=== PATIENT | female | born 1965 | race Caucasian/White ===

== ENCOUNTER → 2023-04-28 13:33 | Outpatient (BNVA) | payer OTHER, SELFPAY | PROVIDERS: PCP Internal Medicine; Visit Provider Hospitalist | DX: J43.2 Centrilobular emphysema (principal); J40 Bronchitis, not specified as acute or chronic; F17.210 Nicotine dependence, cigarettes, uncomplicated | CPT/HCPCS: 99202 ==

== ENCOUNTER 2023-05-13 13:03 | Outpatient (REF) | payer OTHER, SELFPAY ==
--- NOTE | 2023-05-13 14:09 | PFT_ITS ---
INDICATION: COPD. SPIROMETRY: FEV1 to FVC of 52% with an FEV1 of 1.74 L, which is 59% predicted and an FVC of 3.38 L, which is 89% predicted. No significant response to bronchodilators noted. Maximum voluntary ventilation 72% predicted. LUNG VOLUMES: Total lung capacity 102% predicted with expiratory reserve volume of 111% predicted. DIFFUSION CAPACITY: DLCO of 42% predicted. COMPARISON: None. INTERPRETATION: There is an obstructive ventilatory defect consistent with [id number] COPD. No significant response to bronchodilators noted. Mild decrease in the maximum volume to ventilation secondary to deconditioning. Lung volumes are within normal limits. The patient does have a severe diffusion impairment secondary to emphysema and/or other parenchymal lung condition that should be considered. Clinical correlation warranted. Josemanuel Dutta MD MR/MODL / [id number]
== END 2023-05-13 13:04 | disposition home or self-care (01) ==
LOC: HO.RESP 13:03
PROVIDERS: PCP Internal Medicine; Visit Provider Hospitalist
DX: J44.9 Chronic obstructive pulmonary disease, unspecified (principal)
CPT/HCPCS: 94060; 94727; 94729

== ENCOUNTER 2023-06-12 13:59 | Outpatient (AMB) | payer OTHER, SELFPAY ==
--- NOTE | 2023-06-12 12:38 | MHC.OFFVIS ---
Intake Intake Visit Reasons: LDCT SD Allergies sulfamethoxazole [From Bactrim] Allergy (Severe, Verified 04/28/23 13:43) Hives trimethoprim [From Bactrim] Allergy (Severe, Verified 04/28/23 13:43) Hives HPI LDCT SD HPI Details Initial visit for this 57yo smoker with a 35+PYH. Patient has been smoking since age 15 for 42 years at 1ppd. Now at 1/2ppd. . Denies marijuana use. Denies second hand smoke exposure. Denies exposure to chemicals or substances like asbestos. Question uranium exposure in old living situation - never prove. . Reports family history of lung cancer - Dad and Mom. Reports personal history of left breast cancer age 27 - s/p mastectomy and chemo, no radiation. Denies chest CT in last year. . Denies recent travel outside the [place]. Denies recent respiratory illness or recent hospitalization for respiratory issues. Denies testing positive for COVID. Denies recieving COVID vaccines. . Denies fever, chills, new/worsening cough, hemoptysis, hoarseness or dysphagia. Denies significant chest pain, significant dyspnea or unintentional weight loss. Patient Lung Cancer Screening Questionnaire reviewed with patient by provider. . Shared Decision Making Completed. Patient meets criteria. Discussed in detail with patient, the risk vs benefit of LDCT screening. Patient consents to proceed with scan. Discussed smoking cessation. [facility] Medical History (Updated 06/12/23 @ 14:21 by Dora Calvert PA-C) Atherosclerosis of left carotid artery (~2021) COPD (chronic obstructive pulmonary disease) Family history of colon cancer Family history of lung cancer History of CVA (cerebrovascular accident) (~2021) History of left breast cancer (~1992) Hyperlipidemia Hypertension Hypothyroidism (acquired) Nicotine dependence, cigarettes, uncomplicated Osteopenia Vitamin D deficiency Surgical History (Updated 06/12/23 @ 14:27 by Dora Calvert PA-C) History of cardiac cath History of D&C History of left mastectomy Family History (Updated 06/12/23 @ 14:30 by Dora Calvert PA-C) Father Lung cancer Mother Lung cancer Colon cancer Brother Prostate cancer Social History (Updated 06/12/23 @ 14:19 by Dora Calvert PA-C) Patient Tobacco Use Status: Current everyday Tobacco user Tobacco use type: Cigarette Years Smoked: (current smoker - onset 15yo, 1ppd x 42yrs, now 1/2ppd - 35+PYH) Assessment & Plan Assessment & Plan (1) Nicotine dependence, cigarettes, uncomplicated: Comment: (current smoker - onset 15yo, 1ppd x 42yrs, now 1/2ppd - 35+PYH - Dad/Mom had lung ca) Code(s): F17.210 - Nicotine dependence, cigarettes, uncomplicated Plan: - SDM visit completed today in office. - Patient meets criteria for LDCT for lung cancer screening purposes and is asymptomatic. - Smoking cessation counseling offered. Patients can always call [phone]. - Will arrange for a LDCT scan of the chest for screening purposes at [facility]. - Risks, benefits, and alternatives were discussed in detail and the patient agrees to proceed. - Risks discussed include but are not limited to: radiation exposure, anxiety during testing and while awaiting results, false negatives, false positives and possibility of additional intervention such as further imaging or surgical procedures for benign disease. - Benefits are obviously detection of lung cancer at an early stage which can lead to improved outcomes. - Discussed the importance of screening program compliance with adherence to yearly LDCT scan as scheduled - or sooner interval scans for personalized screening regimen. - Discussed follow up plan. Our office will send a letter discussing results and if needed set up phone call and office visit based on CT findings. - Patient educated on results categorization and the management decisions for suspicious findings potentially found on the screening LDCT scan. Any patient with a Lung RADS score of 3 or 4 will be reviewed by a multidisciplinary team at [facility] to form a plan of action in regards to scan findings. - If further work up is warranted for a suspicious lung finding this will be followed by the Lung Cancer Screening program in conjunction with the Thoracic Surgery Department at [facility]. - A copy of the office note and LDCT will be sent to the patient's PCP - as well as documentation on any associated further plans of care. - Incidental findings on LDCT are the PCP's responsibility. These findings are indicated with an S finding on the LDCT Assessment. A note discussing the findings will be sent to the PCP who is then responsible for further management. - All questions answered.? Coding Level of Care Code Lung Cancer Screening G0296 Diagnoses Nicotine dependence, cigarettes, uncomplicated F17.210
== END 2023-06-12 14:28 | disposition home or self-care (01) ==
PROVIDERS: PCP Internal Medicine; Visit Provider Physician Assistant Medical
DX: F17.210 Nicotine dependence, cigarettes, uncomplicated (principal)
CPT/HCPCS: G0296

== ENCOUNTER 2023-06-12 14:30 | Outpatient (REF) | payer OTHER, SELFPAY ==
--- NOTE | ~2023-06-12 | CT_ITS ---
EXAMINATION: CT CHEST SCREENING CLINICAL INFORMATION: Nicotine dependence. 42 pack year history, current smoker. COMPARISON: Baseline TECHNIQUE: Multidetector volumetric CT imaging of the chest is performed without contrast using low dose technique. Additional 2D coronal and sagittal reformatted images and axial 3D maximum intensity projection (MIP) images are generated on the CT workstation. This CT examination was performed using dose optimization techniques as appropriate, variously including the following: *Automated exposure control *Adjustment of mA and/or kV according to patient size (this includes techniques or standardized protocols for targeted exams where dose is matched to indication/reason for exam; i.e. extremities or head) *Use of iterative reconstruction technique DLP: 33 mGy-cm FINDINGS: STAIN DIPPER: Hyperinflation. Left breast prosthesis. LUNGS: Trachea and bronchi are patent. Hyperinflated lungs with flattening of the hemidiaphragms. Centrilobular emphysema and right apical bullous disease. Left lower lobe atelectasis. MEDIASTINUM: Unremarkable thyroid. No pathologic lymphadenopathy. HEART AND GREAT VESSELS: Nonenlarged heart. Trace pericardial fluid. Nonaneurysmal aorta with atherosclerotic calcifications stenting into the branch vessels. Likely significant calcified stenoses left subclavian origin and further distally. CORONARY ARTERY CALCIFICATION: None visualized on this study. PLEURA: There is no pleural effusion. No pleural mass or thickening. AXILLA: No lymphadenopathy. UPPER ABDOMEN: Near occlusive atherosclerotic calcifications superior mesenteric artery. OSSEOUS AND SOFT TISSUE STRUCTURES: Status post left mastectomy with implant and left axillary clips. CT/CT lung screening IMPRESSION: No pulmonary nodules. Centrilobular emphysema and bullous disease. 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 ASSESSMENT: Lung-RADS category 1: Negative RECOMMENDATION: Routine annual low-dose CT screening in 12 months. Clinical correlation regarding possible mesenteric ischemia and hemodynamically significant left subclavian stenoses. Correlate with upper extremity blood pressure measurements, consider carotid and vertebral arterial duplex ultrasound.
== END 2023-06-12 14:31 | disposition home or self-care (01) ==
LOC: HO.CT 14:30
PROVIDERS: PCP Internal Medicine; Visit Provider Physician Assistant Medical
DX: Z12.2 Encounter for screening for malignant neoplasm of respiratory organs (principal); F17.210 Nicotine dependence, cigarettes, uncomplicated
CPT/HCPCS: 71271; G0296

== ENCOUNTER 2023-09-24 13:55 | Outpatient (AMB) | payer OTHER, SELFPAY ==
[2023-09-24 14:00] VITALS: BP 128/70; PULSE 88; O2SAT 99; BMI 18.4
--- NOTE | 2023-09-24 14:00 | MHC.OFFVIS ---
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 She was taken to [facility]. Initially she was thought not to be having a stroke so slow down the process. She also has significant nausea and vomiting could not get the MRI. 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 The patient also had CT scan of that neck which also demonstrated some lung tissue. The patient does have some degree of emphysema. The patient has been a smoker. She has been cutting down significantly. She is down to about 10 cigarettes a day. She was smoking a lot more before. We talked about different tobacco cessation. I do believe that Nicotrol inhaler may be helpful in decreasing her smoking habit. In addition to this the patient has been using Spiriva for his COPD. Although she still has shortness of breath with activity also complains of significant productive cough. The patient has significant chronic bronchitis along with the emphysema. She has not had any PFTs any time soon. Will go ahead and maximize her respiratory capacity by switch over to Trelegy and also start her on azithromycin 3 times a week for a couple weeks. I am hopeful that her respiratory status improves when she cuts down the smoking and when she optimize his respiratory capacity. Will have her undergo pulmonary function studies once able. In addition to this with lung cancer the risk the patient will be a great candidate for the lung cancer screening protocol. Will go ahead and refer her to the lung cancer program at this time. 09/24/2023 the patient is here for a pulmonary follow-up visit. Overall the patient is feeling better. She is responding well to the Trelegy inhaler. She still has a productive cough. She did respond well to the azithromycin although she is not taking her right now. I will give her prescription on paper that her symptoms worsen she can go back on. She did not tolerate the Nicotrol inhaler. She knows she needs to quit smoking. She has although alternatives at this time that she is considering. I did request that if she needs assistance she can always call in order for us to help her with her tobacco cessation that is so important. She is also due for her CT scan of the chest to the lung cancer screening program next week. Patient has not had PFTs as of yet. Will follow-up in 6-8 months. If she has any issues or concerns she can always call the office for an earlier assessment. [facility] Medical History (Updated 06/26/23 @ 10:36 by Dora Calvert PA-C) Family history of lung cancer Family history of colon cancer Nicotine dependence, cigarettes, uncomplicated Vitamin D deficiency Osteopenia History of left breast cancer (~1992) Hypothyroidism (acquired) Hyperlipidemia Hypertension Atherosclerosis of left carotid artery (~2021) History of CVA (cerebrovascular accident) (~2021) COPD (chronic obstructive pulmonary disease) Surgical History (Updated 06/12/23 @ 14:27 by Dora Calvert PA-C) History of cardiac cath History of D&C History of left mastectomy Family History (Updated 06/12/23 @ 14:30 by Dora Calvert PA-C) Father Lung cancer Mother Lung cancer Colon cancer Brother Prostate cancer Social History (Updated 06/12/23 @ 14:19 by Dora Calvert PA-C) Patient Tobacco Use Status: Current everyday Tobacco user Tobacco use type: Cigarette Years Smoked: (current smoker - onset 15yo, 1ppd x 42yrs, now 1/2ppd - 35+PYH) Review of Systems Const Denies fever(s) Eyes Reports change in vision ENT Denies change in voice Card Denies chest pain and Denies dyspnea on exertion Resp Reports chest congestion, Reports cough, Denies dyspnea on exertion and Denies wheezing GI Reports no additional complaints Musc Reports myalgias Skin/Breast Denies rash Neuro Reports as per HPI Max/Lymph Denies lymphadenopathy Aller/Immun Denies wheezing Physical Exam Vital Signs: Last Vital Signs Pulse 88 09/24/23 14:00 BP 128/70 09/24/23 14:00 Pulse Ox 99 09/24/23 14:00 Oxygen Delivery Method Room Air 09/24/23 14:00 BMI result Body Mass Index 18.4 Const General: comfortable HEENT Head: Yes normocephalic Neck Neck: Yes supple Chest Chest palpation & inspection: normal inspection of the chest Resp Effort & Inspection: normal respiratory effort Auscultation: no rhonchi and diminished lung sounds Cardio Rate: regular rate Rhythm: regular rhythm Heart sounds: S1 normal heart sound present and S2 normal heart sound present GI Palpation (GI): Soft to palpation Skin General skin exam: no rashes or lesions noted Extrem General: Yes no clubbing, cyanosis or edema Assessment & Plan Assessment & Plan (1) Tobacco dependence: Code(s): F17.200 - Nicotine dependence, unspecified, uncomplicated (2) COPD (chronic obstructive pulmonary disease): Comment: (05/13/23 PFT = FVC: 89, FEV1: 59, FEV1/FVC 65, TLC 102, DLCO 42) Code(s): J44.9 - Chronic obstructive pulmonary disease, unspecified Qualifiers: COPD type: emphysema Emphysema type: centrilobular Qualified Code(s): J43.2 - Centrilobular emphysema (3) Bronchitis: Code(s): J40 - Bronchitis, not specified as acute or chronic Plan continue Trelegy BRIGITTE as needed restart Azithromycin in worsens PFTs LDCT program nicotrol inhaler F/U 2-3 months Medications: New azithromycin Take 1 tablet on Thursday/Thursday/Thursday 250 mg PO 3XW 28 days 12 tabs 2RF K21.9 - Gastro-esophageal reflux disease without esophagitis Coding Level of Care Code Est Pt Level 4 (91024) Diagnoses Tobacco dependence F17.200 Centrilobular emphysema J43.2 COPD type: emphysema Emphysema type: centrilobular Bronchitis J40 Time Spent (min) 16
== END 2023-09-24 14:18 | disposition home or self-care (01) ==
PROVIDERS: PCP Internal Medicine; Visit Provider Hospitalist
DX: F17.200 Nicotine dependence, unspecified, uncomplicated (principal); J43.2 Centrilobular emphysema; J40 Bronchitis, not specified as acute or chronic
CPT/HCPCS: 99214

== ENCOUNTER → 2023-09-24 13:55 | Outpatient (BNVA) | payer OTHER, SELFPAY | PROVIDERS: PCP Internal Medicine; Visit Provider Hospitalist | DX: J43.2 Centrilobular emphysema (principal); J40 Bronchitis, not specified as acute or chronic; F17.210 Nicotine dependence, cigarettes, uncomplicated; Z79.899 Other long term (current) drug therapy | CPT/HCPCS: 99212 ==

== ENCOUNTER 2024-05-19 13:56 | Outpatient (AMB) | payer OTHER, SELFPAY ==
[2024-05-19 14:09] VITALS: PULSE 89; O2SAT 97; BMI 18.1
--- NOTE | 2024-05-19 14:09 | MHC.OFFVIS ---
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 She was taken to [facility]. Initially she was thought not to be having a stroke so slow down the process. She also has significant nausea and vomiting could not get the MRI. 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 The patient also had CT scan of that neck which also demonstrated some lung tissue. The patient does have some degree of emphysema. The patient has been a smoker. She has been cutting down significantly. She is down to about 10 cigarettes a day. She was smoking a lot more before. We talked about different tobacco cessation. I do believe that Nicotrol inhaler may be helpful in decreasing her smoking habit. In addition to this the patient has been using Spiriva for his COPD. Although she still has shortness of breath with activity also complains of significant productive cough. The patient has significant chronic bronchitis along with the emphysema. She has not had any PFTs any time soon. Will go ahead and maximize her respiratory capacity by switch over to Trelegy and also start her on azithromycin 3 times a week for a couple weeks. I am hopeful that her respiratory status improves when she cuts down the smoking and when she optimize his respiratory capacity. Will have her undergo pulmonary function studies once able. In addition to this with lung cancer the risk the patient will be a great candidate for the lung cancer screening protocol. Will go ahead and refer her to the lung cancer program at this time. 09/24/2023 the patient is here for a pulmonary follow-up visit. Overall the patient is feeling better. She is responding well to the Trelegy inhaler. She still has a productive cough. She did respond well to the azithromycin although she is not taking her right now. I will give her prescription on paper that her symptoms worsen she can go back on. She did not tolerate the Nicotrol inhaler. She knows she needs to quit smoking. She has although alternatives at this time that she is considering. I did request that if she needs assistance she can always call in order for us to help her with her tobacco cessation that is so important. She is also due for her CT scan of the chest to the lung cancer screening program next week. Patient has not had PFTs as of yet. Will follow-up in 6-8 months. If she has any issues or concerns she can always call the office for an earlier assessment. 05/19/2024 the patient is here for pulmonary follow-up visit. Overall she is doing okay. She still has a productive cough. Mild in severity. Trelegy has been helpful. She has off the azithromycin. She is now dealing with significant peripheral vascular disease. Recently she had a CT scan of the chest the abdomen and pelvis to assess her vasculature. We did request the CT scan of the chest from [facility] we have yet to review it. In the meantime the patient was scheduled to undergo a CT scan for the low-dose program and we can go ahead and postpone the she is still struggling with smoking although in order for her to undergo vascular surgery she is going to have to quit smoking. She is agreeable to start Wellbutrin and also the nicotine patch. She is going to work up to the maximum dose of 150 mg twice a day other Wellbutrin and then come up with a quit date. On her quit date she can start using the patch. [facility] Medical History (Updated 06/26/23 @ 10:36 by Dora Calvert PA-C) Family history of lung cancer Family history of colon cancer Nicotine dependence, cigarettes, uncomplicated Vitamin D deficiency Osteopenia History of left breast cancer (~1992) Hypothyroidism (acquired) Hyperlipidemia Hypertension Atherosclerosis of left carotid artery (~2021) History of CVA (cerebrovascular accident) (~2021) COPD (chronic obstructive pulmonary disease) Surgical History (Updated 06/12/23 @ 14:27 by Dora Calvert PA-C) History of cardiac cath History of D&C History of left mastectomy Family History (Updated 06/12/23 @ 14:30 by Dora Calvert PA-C) Father Lung cancer Mother Lung cancer Colon cancer Brother Prostate cancer Social History (Updated 06/12/23 @ 14:19 by Dora Calvert PA-C) Patient Tobacco Use Status: Current everyday Tobacco user Tobacco use type: Cigarette Years Smoked: (current smoker - onset 15yo, 1ppd x 42yrs, now 1/2ppd - 35+PYH) Review of Systems Const Denies fever(s) Eyes Reports change in vision ENT Denies change in voice Card Denies chest pain and Denies dyspnea on exertion Resp Reports chest congestion, Reports cough, Denies dyspnea on exertion and Denies wheezing GI Reports no additional complaints Musc Reports myalgias Skin/Breast Denies rash Neuro Reports as per HPI Max/Lymph Denies lymphadenopathy Aller/Immun Denies wheezing Physical Exam Vital Signs: Last Vital Signs Pulse 89 05/19/24 14:09 Pulse Ox 97 05/19/24 14:09 Oxygen Delivery Method Room Air 05/19/24 14:09 BMI result Body Mass Index 18.1 Const General: comfortable HEENT Head: Yes normocephalic Neck Neck: Yes supple Chest Chest palpation & inspection: normal inspection of the chest Resp Effort & Inspection: normal respiratory effort Auscultation: no rhonchi and diminished lung sounds Cardio Rate: regular rate Rhythm: regular rhythm Heart sounds: S1 normal heart sound present and S2 normal heart sound present GI Palpation (GI): Soft to palpation Skin General skin exam: no rashes or lesions noted Extrem General: Yes no clubbing, cyanosis or edema Assessment & Plan Assessment & Plan (1) Tobacco dependence: Code(s): F17.200 - Nicotine dependence, unspecified, uncomplicated Category: Medical (2) COPD (chronic obstructive pulmonary disease): Comment: (05/13/23 PFT = FVC: 89, FEV1: 59, FEV1/FVC 65, TLC 102, DLCO 42) Code(s): J44.9 - Chronic obstructive pulmonary disease, unspecified Category: Medical Qualifiers: COPD type: emphysema Emphysema type: centrilobular Qualified Code(s): J43.2 - Centrilobular emphysema (3) Bronchitis: Code(s): J40 - Bronchitis, not specified as acute or chronic Category: Medical Plan continue Trelegy BRIGITTE as needed Awaiting CT chest from [facility] start Wellbutrin start nicotine patch F/U 6-8 months Medications: New bupropion HCl 150 mg (2 x 75 mg) PO BID 120 tabs 6RF 30 days nicotine 1 patch transdermal DAILY 28 ea 3RF 28 days albuterol sulfate 90 mcg/actuation (Ventolin HFA) 2 puffs inhalation QID PRN 18 grams 11RF shortness of breath or wheezing 30 days Coding Level of Care Code Est Pt Level 4 (84922) Diagnoses Tobacco dependence F17.200 Centrilobular emphysema J43.2 COPD type: emphysema Emphysema type: centrilobular Bronchitis J40 Time Spent (min) 16
== END 2024-05-19 14:33 | disposition home or self-care (01) ==
PROVIDERS: PCP Internal Medicine; Visit Provider Hospitalist
DX: F17.200 Nicotine dependence, unspecified, uncomplicated (principal); J43.2 Centrilobular emphysema; J40 Bronchitis, not specified as acute or chronic
CPT/HCPCS: 99214

== ENCOUNTER → 2024-05-19 13:56 | Outpatient (BNVA) | payer OTHER, SELFPAY | PROVIDERS: PCP Internal Medicine; Visit Provider Hospitalist | DX: J43.2 Centrilobular emphysema (principal); J40 Bronchitis, not specified as acute or chronic; F17.210 Nicotine dependence, cigarettes, uncomplicated | CPT/HCPCS: 99212 ==

== ENCOUNTER 2025-01-04 10:19 | Outpatient (AMB) | payer MEDICARE, MEDICAID, SELFPAY ==
[2025-01-04 10:26] VITALS: BP 144/82; PULSE 73; O2SAT 99; BMI 15.7
--- NOTE | 2025-01-04 10:26 | A.OFFVIS_ITS ---
Vital Signs 01/04/25 10:26 Height 5 ft 6 in Weight 97 lb 0.054 oz BMI 15.7 BP 144/82 H Blood Pressure Location Rt brachial Position Sitting Pulse 73 Pulse Source Pulse Oximeter Pulse Oximetry (%) 99 Oxygen Delivery Method Room Air Intake Visit Reasons: COPD Allergies sulfamethoxazole [From Bactrim] Allergy (Severe, Verified 01/04/25 10:29) Hives trimethoprim [From Bactrim] Allergy (Severe, Verified 01/04/25 10:29) Hives HPI Comments Details: The patient is a 59 year woman with that no history of tobacco dependency who apparently developed stroke-like symptoms. She was taken to [facility]. Initially she was thought not to be having a stroke so slow down the process. She also has significant nausea and vomiting could not get the MRI. 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 The patient also had CT scan of that neck which also demonstrated some lung tissue. The patient does have some degree of emphysema. The patient has been a smoker. She has been cutting down significantly. She is down to about 10 cigarettes a day. She was smoking a lot more before. We talked about different tobacco cessation. I do believe that Nicotrol inhaler may be helpful in decreasing her smoking habit. In addition to this the patient has been using Spiriva for his COPD. Although she still has shortness of breath with activity also complains of significant productive cough. The patient has significant chronic bronchitis along with the emphysema. She has not had any PFTs any time soon. Will go ahead and maximize her respiratory capacity by switch over to Trelegy and also start her on azithromycin 3 times a week for a couple weeks. I am hopeful that her respiratory status improves when she cuts down the smoking and when she optimize his respiratory capacity. Will have her undergo pulmonary function studies once able. In addition to this with lung cancer the risk the patient will be a great candidate for the lung cancer screening protocol. Will go ahead and refer her to the lung cancer program at this time. 09/24/2023 the patient is here for a pulmonary follow-up visit. Overall the patient is feeling better. She is responding well to the Trelegy inhaler. She still has a productive cough. She did respond well to the azithromycin although she is not taking her right now. I will give her prescription on paper that her symptoms worsen she can go back on. She did not tolerate the Nicotrol inhaler. She knows she needs to quit smoking. She has although alternatives at this time that she is considering. I did request that if she needs assistance she can always call in order for us to help her with her tobacco cessation that is so important. She is also due for her CT scan of the chest to the lung cancer screening program next week. Patient has not had PFTs as of yet. Will follow- up in 6-8 months. If she has any issues or concerns she can always call the office for an earlier assessment. 05/19/2024 the patient is here for pulmonary follow-up visit. Overall she is doing okay. She still has a productive cough. Mild in severity. Trelegy has been helpful. She has off the azithromycin. She is now dealing with significant peripheral vascular disease. Recently she had a CT scan of the chest the abdomen and pelvis to assess her vasculature. We did request the CT scan of the chest from [facility] we have yet to review it. In the meantime the patient was scheduled to undergo a CT scan for the low-dose program and we can go ahead and postpone the she is still struggling with smoking although in order for her to undergo vascular surgery she is going to have to quit smoking. She is agreeable to start Wellbutrin and also the nicotine patch. She is going to work up to the maximum dose of 150 mg twice a day other Wellbutrin and then come up with a quit date. On her quit date she can start using the patch. 01/04/2025 the patient is here for a pulmonary follow-up visit. Overall she is doing well. She is still smoking however. She did not tolerate Wellbutrin because adverse side effects. She knows she needs to quit but she is not ready right now. She is waiting for her surgical date so then she can stop before her surgery. In the meantime I did provide her with a placard form because of her difficulty walking in the fact that she uses a cane in the fact that his she has significant COPD. The patient does respond well to Trelegy. She also responded well to the azithromycin 3 times a week so with the continue for now. At some point she should get an EKG to make sure that not developing any cardiac arrhythmias. I will order an EKG now. Also, the patient will have a repeat CT scan sometime over the summer to the lung cancer screening program at [facility]. If she does not get a scheduled CT scan she called me and I can order 1 for her. Will follow-up in the fall otherwise if she has any issues prior to that she will call for an earlier send some. [facility] Medical History (Updated 06/26/23 @ 10:36 by Dora Calvert PA-C) Family history of lung cancer Family history of colon cancer Nicotine dependence, cigarettes, uncomplicated Vitamin D deficiency Osteopenia History of left breast cancer (~1992) Hypothyroidism (acquired) Hyperlipidemia Hypertension Atherosclerosis of left carotid artery (~2021) History of CVA (cerebrovascular accident) (~2021) COPD (chronic obstructive pulmonary disease) Surgical History (Updated 06/12/23 @ 14:27 by Dora Calvert PA-C) History of cardiac cath History of D&C History of left mastectomy Family History (Updated 06/12/23 @ 14:30 by Dora Calvert PA-C) Father Lung cancer Mother Lung cancer Colon cancer Brother Prostate cancer Social History (Updated 01/04/25 @ 10:29 by Marita Miles [facility]) Patient Tobacco Use Status: Current everyday Tobacco user Tobacco use type: Cigarette Cigarettes Per Day: 10 Years Smoked: (current smoker - onset 15yo, 1ppd x 42yrs, now 1/2ppd - 35+PYH) Review of Systems Const Denies fever(s) Eyes Reports change in vision ENT Denies change in voice Card Denies chest pain and Denies dyspnea on exertion Resp Reports chest congestion, Reports cough, Denies dyspnea on exertion and Denies wheezing GI Reports no additional complaints Musc Reports myalgias Skin/Breast Denies rash Neuro Reports as per HPI Max/Lymph Denies lymphadenopathy Aller/Immun Denies wheezing Physical Exam Vital Signs: Last Vital Signs Pulse 73 01/04/25 10:26 BP 144/82 H 01/04/25 10:26 Pulse Ox 99 01/04/25 10:26 Oxygen Delivery Method Room Air 01/04/25 10:26 BMI result Body Mass Index 15.7 Const General: comfortable HEENT Head: Yes normocephalic Neck Neck: Yes supple Chest Chest palpation & inspection: normal inspection of the chest Resp Effort & Inspection: normal respiratory effort Auscultation: no rhonchi and diminished lung sounds Cardio Rate: regular rate Rhythm: regular rhythm Heart sounds: S1 normal heart sound present and S2 normal heart sound present GI Palpation (GI): Soft to palpation Skin General skin exam: no rashes or lesions noted Extrem General: Yes no clubbing, cyanosis or edema Assessment & Plan Assessment & Plan (1) Tobacco dependence: Code(s): F17.200 - Nicotine dependence, unspecified, uncomplicated Category: Medical (2) COPD (chronic obstructive pulmonary disease): Comment: (05/13/23 PFT = FVC: 89, FEV1: 59, FEV1/FVC 65, TLC 102, DLCO 42) Code(s): J44.9 - Chronic obstructive pulmonary disease, unspecified Category: Medical Qualifiers: COPD type: emphysema Emphysema type: centrilobular Qualified Code(s): J43.2 - Centrilobular emphysema (3) Bronchitis: Code(s): J40 - Bronchitis, not specified as acute or chronic Category: Medical Plan continue Trelegy BRIGITTE as needed CT chest Summer 2024 azithromycin MWF needs an EKG stopped Wellbutrin (adverse affects) restart nicotine patch consider acapella valve F/U 6-8 months Orders: Orders ECG 12 lead EKG Today J44.9 - Chronic obstructive pulmonary disease, unspecified Medications: Refilled azithromycin Take 1 tablet on Thursday/Thursday/Thursday 250 mg PO 3XW 12 tabs 2RF 28 days K21.9 - Gastro-esophageal reflux disease without esophagitis Coding Level of Care Code Est Pt Level 4 (39674) Diagnoses Tobacco dependence F17.200 Centrilobular emphysema J43.2 COPD type: emphysema Emphysema type: centrilobular Bronchitis J40 Time Spent (min) 16
== END 2025-01-04 10:59 | disposition home or self-care (01) ==
PROVIDERS: PCP Internal Medicine; Visit Provider Hospitalist
DX: F17.200 Nicotine dependence, unspecified, uncomplicated (principal); J43.2 Centrilobular emphysema; J40 Bronchitis, not specified as acute or chronic
CPT/HCPCS: 99214

== ENCOUNTER → 2025-01-04 10:19 | Outpatient (BNVA) | payer MEDICARE, SELFPAY | PROVIDERS: PCP Internal Medicine; Visit Provider Hospitalist | DX: J43.2 Centrilobular emphysema (principal); J40 Bronchitis, not specified as acute or chronic; F17.210 Nicotine dependence, cigarettes, uncomplicated | CPT/HCPCS: 99212 ==

== ENCOUNTER 2025-08-31 09:47 | Outpatient (AMB) | payer MEDICARE, MEDICAID, SELFPAY ==
--- NOTE | 2025-08-31 09:52 | A.OFFVIS_ITS ---
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 She was taken to [facility]. Initially she was thought not to be having a stroke so slow down the process. She also has significant nausea and vomiting could not get the MRI. 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 The patient also had CT scan of that neck which also demonstrated some lung tissue. The patient does have some degree of emphysema. The patient has been a smoker. She has been cutting down significantly. She is down to about 10 cigarettes a day. She was smoking a lot more before. We talked about different tobacco cessation. I do believe that Nicotrol inhaler may be helpful in decreasing her smoking habit. In addition to this the patient has been using Spiriva for his COPD. Although she still has shortness of breath with activity also complains of significant productive cough. The patient has significant chronic bronchitis along with the emphysema. She has not had any PFTs any time soon. Will go ahead and maximize her respiratory capacity by switch over to Trelegy and also start her on azithromycin 3 times a week for a couple weeks. I am hopeful that her respiratory status improves when she cuts down the smoking and when she optimize his respiratory capacity. Will have her undergo pulmonary function studies once able. In addition to this with lung cancer the risk the patient will be a great candidate for the lung cancer screening protocol. Will go ahead and refer her to the lung cancer program at this time. 09/24/2023 the patient is here for a pulmonary follow-up visit. Overall the patient is feeling better. She is responding well to the Trelegy inhaler. She still has a productive cough. She did respond well to the azithromycin although she is not taking her right now. I will give her prescription on paper that her symptoms worsen she can go back on. She did not tolerate the Nicotrol inhaler. She knows she needs to quit smoking. She has although alternatives at this time that she is considering. I did request that if she needs assistance she can always call in order for us to help her with her tobacco cessation that is so important. She is also due for her CT scan of the chest to the lung cancer screening program next week. Patient has not had PFTs as of yet. Will follow- up in 6-8 months. If she has any issues or concerns she can always call the office for an earlier assessment. 05/19/2024 the patient is here for pulmonary follow-up visit. Overall she is doing okay. She still has a productive cough. Mild in severity. Trelegy has been helpful. She has off the azithromycin. She is now dealing with significant peripheral vascular disease. Recently she had a CT scan of the chest the abdomen and pelvis to assess her vasculature. We did request the CT scan of the chest from [facility] we have yet to review it. In the meantime the patient was scheduled to undergo a CT scan for the low-dose program and we can go ahead and postpone the she is still struggling with smoking although in order for her to undergo vascular surgery she is going to have to quit smoking. She is agreeable to start Wellbutrin and also the nicotine patch. She is going to work up to the maximum dose of 150 mg twice a day other Wellbutrin and then come up with a quit date. On her quit date she can start using the patch. 01/04/2025 the patient is here for a pulmonary follow-up visit. Overall she is doing well. She is still smoking however. She did not tolerate Wellbutrin because adverse side effects. She knows she needs to quit but she is not ready right now. She is waiting for her surgical date so then she can stop before her surgery. In the meantime I did provide her with a placard form because of her difficulty walking in the fact that she uses a cane in the fact that his she has significant COPD. The patient does respond well to Trelegy. She also responded well to the azithromycin 3 times a week so with the continue for now. At some point she should get an EKG to make sure that not developing any cardiac arrhythmias. I will order an EKG now. Also, the patient will have a repeat CT scan sometime over the summer to the lung cancer screening program at [facility]. If she does not get a scheduled CT scan she called me and I can order 1 for her. Will follow-up in the fall otherwise if she has any issues prior to that she will call for an earlier send some. 08/31/2025 the patient is here for pulmonary follow-up visit. Overall she is doing okay. She continues use the Trelegy. She does have a rescue inhaler she has not had to use it. She also has been on the azithromycin 3 times a week but she stopped it since she is doing okay. She did have a CT scan back in April 2025 at [facility]. There was a last CT scan she has not had any recent low-dose CAT scans. Unfortunately she continues smoking. She is trying to quit. She is down to about 10 cigarettes a day. She has tried multiple nicotine supplementations but she does not tolerate them except for the patch. The patient needs to quit smoking because she does have to have vascular surgery and she needs to quit altogether before surgery. She will be seeing her vascular surgeon in October. In the meantime the patient will continue with current respiratory therapy. Will reach out to [facility] to make sure she gets a lung cancer screening program. [facility] Medical History (Updated 06/26/23 @ 10:36 by Dora Calvert PA-C) Family history of lung cancer Family history of colon cancer Nicotine dependence, cigarettes, uncomplicated Vitamin D deficiency Osteopenia History of left breast cancer (~1992) Hypothyroidism (acquired) Hyperlipidemia Hypertension Atherosclerosis of left carotid artery (~2021) History of CVA (cerebrovascular accident) (~2021) COPD (chronic obstructive pulmonary disease) Surgical History (Updated 06/12/23 @ 14:27 by Dora Calvert PA-C) History of cardiac cath History of D&C History of left mastectomy Family History (Updated 06/12/23 @ 14:30 by Dora Calvert PA-C) Father Lung cancer Mother Lung cancer Colon cancer Brother Prostate cancer Social History Patient Tobacco Use Status: Current everyday Tobacco user Tobacco use type: Cigarette Cigarettes Per Day: 10 Years Smoked: (current smoker - onset 15yo, 1ppd x 42yrs, now 1/2ppd - 35+PYH) Review of Systems Const Denies fever(s) Eyes Reports change in vision ENT Denies change in voice Card Denies chest pain and Denies dyspnea on exertion Resp Reports chest congestion, Reports cough, Denies dyspnea on exertion and Denies wheezing GI Reports no additional complaints Musc Reports myalgias Skin/Breast Denies rash Neuro Reports as per HPI Max/Lymph Denies lymphadenopathy Aller/Immun Denies wheezing Physical Exam Vital Signs: Last Vital Signs Pulse 70 08/31/25 09:53 BP 186/98 H 08/31/25 09:53 Pulse Ox 100 08/31/25 09:53 Oxygen Delivery Method Room Air 08/31/25 09:53 BMI result Body Mass Index 15.5 Const General: comfortable HEENT Head: Yes normocephalic Neck Neck: Yes supple Chest Chest palpation & inspection: normal inspection of the chest Resp Effort & Inspection: normal respiratory effort Auscultation: no rhonchi and diminished lung sounds Cardio Rate: regular rate Rhythm: regular rhythm Heart sounds: S1 normal heart sound present and S2 normal heart sound present GI Palpation (GI): Soft to palpation Skin General skin exam: no rashes or lesions noted Extrem General: Yes no clubbing, cyanosis or edema Assessment & Plan Assessment & Plan (1) Tobacco dependence: Code(s): F17.200 - Nicotine dependence, unspecified, uncomplicated Category: Medical (2) COPD (chronic obstructive pulmonary disease): Comment: (05/13/23 PFT = FVC: 89, FEV1: 59, FEV1/FVC 65, TLC 102, DLCO 42) Code(s): J44.9 - Chronic obstructive pulmonary disease, unspecified Category: Medical Qualifiers: COPD type: emphysema Emphysema type: centrilobular Qualified Code(s): J43.2 - Centrilobular emphysema (3) Bronchitis: Code(s): J40 - Bronchitis, not specified as acute or chronic Category: Medical Plan continue Trelegy BRIGITTE as [facility], will request holding azithromycin MWF stopped Wellbutrin (adverse affects) Tobacco cessation, nicotine patch Alpha 1 testing PFTs next year F/U 10-12 months Orders: Orders PFT pulmonary function test 11 Months J43.2 - Centrilobular emphysema Coding Level of Care Code Est Pt Level 4 (03124) Complex EM visit Add On G2211 Diagnoses Tobacco dependence F17.200 Centrilobular emphysema J43.2 COPD type: emphysema Emphysema type: centrilobular Bronchitis J40 Time Spent (min) 17
[2025-08-31 09:53] VITALS: BP 186/98; PULSE 70; O2SAT 100; BMI 15.5
== END 2025-08-31 10:25 | disposition home or self-care (01) ==
PROVIDERS: PCP Internal Medicine; Visit Provider Hospitalist
DX: F17.200 Nicotine dependence, unspecified, uncomplicated (principal); J43.2 Centrilobular emphysema; J40 Bronchitis, not specified as acute or chronic
CPT/HCPCS: 99214; G2211

== ENCOUNTER → 2025-08-31 09:47 | Outpatient (BNVA) | payer MEDICARE, SELFPAY | PROVIDERS: PCP Internal Medicine; Visit Provider Hospitalist | DX: J43.2 Centrilobular emphysema (principal); J40 Bronchitis, not specified as acute or chronic; F17.200 Nicotine dependence, unspecified, uncomplicated | CPT/HCPCS: 99212 ==